=== PATIENT | female | born 1975 | race Caucasian/White ===

== ENCOUNTER → 2025-03-08 12:18 | Outpatient (REF) | payer BC, SELFPAY | LOC: WDC 12:18 | PROVIDERS: ATTENDING PHYSICIAN Obstetrics & Gynecology Gynecology; FAMILY PHYSICIAN Family Medicine | DX: Z12.31 Encounter for screening mammogram for malignant neoplasm of breast (principal) | CPT/HCPCS: 77063; 77067 ==

== ENCOUNTER 2025-04-15 04:19 | Emergency (ER) | payer BC, SELFPAY ==
[2025-04-15 04:25] VITALS: BP 109/76
--- NOTE | 2025-04-15 06:04 | ED.GENMED ---
History of Present Illness
General
Chief Complaint: Head Injury
Source: patient and spouse
Exam Limitations: none
Time Seen by Provider: 04/15/25 05:51
Nursing documentation reviewed up to this point in time: agreed with
History of Present Illness
History of Present Illness:
This is a 49-year-old woman with history of hypertension, GERD who admits to drinking alcohol last night. She took her lisinopril late prior to going to bed. She got up out of bed quickly as she was concerned that her father who has dementia was
up and about, wandering and was concerned that he was going to leave the house. While she quickly ambulated into the bathroom she admits to feeling briefly lightheaded and then she apparently passed out falling forward in the kitchen striking her
face on the kitchen floor.
She presents via private vehicle with complaints of abrasion/puncture wound to her nasal bridge. She does admit to brief epistaxis which stopped abruptly. She complains of headache, neck pain. No weakness nor numbness. She takes no
anticoagulants. She denies nausea or vomiting.
Cervical collar placed in triage.
Last Tdap 2018.
Patient sent from triage to CAT scan for CT the head, cervical spine, facial bones.
Past History
Past History
ED Past Medical History: Asthma, GERD, HTN, Psychiatric (Anxiety) and Other
ED Past Surgical History: Orthopedic (Right hand with removal of the pins) and Other (Cyst under breast removed)
Social History
Tobacco: Former smoker
Alcohol: Daily (Rum or Vodka 2-4, Now for the past 3-4 weeks only 1 daily. )
Drug: None
Personal:
Living: with family
Employment: Employed
Family History
Family History: Other (Noncontributory)
Phy Exam
Physical Exam
Physical Exam:
TRAUMA EXAM:
VITAL SIGNS: Vital signs reviewed, cooperative. Blood pressure 129/90 upon reevaluation during my initial evaluation.
DISTRESS: No active disease
EYES: Pupils reactive, no orbital trauma
NOSE: There is a 3 mm superficial laceration nasal bridge. No active bleeding. No soft tissue swelling nor ecchymosis. Nasal passages clear without blood. No septal hematoma.
FACE AND SCALP: No scalp trauma, external canals no blood. The mucosal surface of the upper lip has a superficial abrasion. No dental tenderness nor dental avulsions. No tenderness to the mandible nor maxilla. Full mandible range of motion
without difficulty.
NECK: Cervical collar in place.
BACK: Back nontender, pelvis stable to compression
RESPIRATORY: No distress, breath sounds normal, no tender chest wall
CARDIAC: No murmur, pulses equal and strong
ABDOMEN: Soft nontender bowel sounds normal
SKIN: Skin intact no bleeding, color normal
EXTREMITIES: Nontender
NEUROLOGICAL: Alert, oriented, no motor deficits
PSYCH: Mood affect normal
Course
Orders/Labs/Results
Orders:
Orders
04/15/25 04:42
CT Cervical Spine W/o Iv Contr Urgent
Reason For Exam: fall with neck pain
CT Facial Bones W/o Iv Contras Urgent
Comment:
Reason For Exam: fall with neck pain
CT Head W/o Iv Contrast Urgent
Comment:
Reason For Exam: fall with neck pain
04/15/25 04:44
Shoulder, Right 2 Views [CR Shoulder - Right Min 2 View] Urgent
Comment:
Reason For Exam: fall
04/15/25 06:03
Acetaminophen [Tylenol] 1,000 mg PO NOW STA
Tetanus/Diphth/Acelpertussis [Adacel] 0.5 ml IM .ONCE ONE
Vital Signs
Initial and Last Documented VS:
Initial Vital Signs
Temp Pulse Resp BP Pulse Ox
97.6 F 76 20 109/76 98
04/15/25 04:25 04/15/25 04:25 04/15/25 04:25 04/15/25 04:25 04/15/25 04:25
Last Documented Vital Signs
Temp Pulse Resp BP Pulse Ox
97.6 F 76 20 109/76 98
04/15/25 04:25 04/15/25 04:25 04/15/25 04:25 04/15/25 04:25 04/15/25 04:25
MDM/Problems Addressed
Differential Diagnosis Includes:
DIFFERENTIAL DIAGNOSIS
The Differential Diagnosis includes, in no particular order and is not limited to:
1. Orthostatic hypotension
2. Dehydration
3. Syncope
4. Facial contusion or abrasion
5. Vestibular disorder
6. Hypoglycemia
7. Use of alcohol contributing to symptoms
8. Transient ischemic attack (although less likely given the symptoms)
9. Medication side effects
10. Viral illness
MDM/Problems Addressed:
Syncope versus mechanical fall with facial injury.
And is drinking alcohol last night and according to our records there is history of frequent alcohol use which patient denies.
She remains bright and alert, pleasant, no evidence of alcohol intoxication. No focal neurodeficits.
CT of the head, cervical spine, facial bones all negative. No evidence of traumatic findings.
Superficial nasal laceration repaired with Steri-Strip.
Will update Tdap.
Cervical collar removed. No midline bony tenderness. Full cervical range of motion without difficulty.
Patient has been offered Tylenol versus ibuprofen for pain. She elects Tylenol.
Recommend supportive measures.
Avoid any further alcohol consumption at least over the next several days.
Prompt follow-up with PCP for recheck.
PLAN
1. The patient was advised to use Tylenol (acetaminophen) for the management of facial pain.
2. Hydration was emphasized, with recommendations to take fluids to address possible dehydration.
3. Advised to avoid sudden positional changes to prevent orthostatic hypotension.
4. Recommendations for a soft diet were given to avoid aggravating facial pain.
5. Provided with steri-strips for any minor abrasions, and instructions to keep the area clean and dry.
Chronic conditions affecting care: HTN
*Radiology
Radiology exam reviewed: radiology read reviewed
*Pulse Oximetry
SaO2: 98
Oxygen Mode of Delivery: Room air
Patient hypoxic: no
*Critical Care Note
Total Time (30-74mins, 75-104mins- exclusive of procedures): Not Applicable
ED Attending Note
-
Portions of this chart may have been created with voice recognition software.� Occasional wrong word or��sound alike� substitutions may have occurred due to the inherent limitations of voice recognition software.
Discharge Plan
Departure
Patient Disposition: Home (Routine Discharge)
Date of Disposition: 04/15/25
Time of Disposition: 06:06
Patient with high blood pressure during this ER visit?: No
Condition: Good
Discharge Problem:
Vasovagal syncope, Contusion of nose, Minor closed head injury, Cervical strain, acute, Contusion of upper lip
Instructions: Minor Head Injury (DC), Contusion (DC), Soft diet, Taking care of cuts, scrapes, and puncture wounds, Tdap vaccine
Prescriptions:
No Action
esomeprazole magnesium [Nexium] 40 MG capsule,delayed release(DR/EC)
40 mg PO DAILY
ranitidine HCl [Zantac Maximum Strength] 150 MG tablet
150 mg PO DAILY
fluticasone propionate [Flovent HFA] 1 PUFF HFA aerosol inhaler
1 puff inhalation DAILY
clonazepam 0.125 MG tablet,disintegrating
0.125 mg PO PRN PRN (Reason: anxiety)
ondansetron 4 mg film
4 mg PO Q8H PRN (Reason: nausea and vomiting) Qty: 30 0RF
pantoprazole 40 mg tablet,delayed release (DR/EC)
40 mg PO DAILY Qty: 14 0RF
Referrals:
Vimal Vazquez MD [Family Provider, Family Practice] - Call in 1-3 days for appt
Interventions
Interventions:
*General Assessment Last Done: 04/15/25 04:25
*Neglect/Abuse Screening Last Done: 04/15/25 04:25
*ED COVID-19 Vaccine History Last Done: 04/15/25 04:25
*ED Influenza Vaccine History Last Done: 04/15/25 04:25
Discharge Date and Time
Print Language: [id number]
[2025-04-15] MEDS: TYLENOL 1000 MG PO (06:16)
[2025-04-15] MEDS: ADACEL 0.5 ML IM (06:17)
== END 2025-04-15 06:31 | disposition home or self-care (01) ==
LOC: EMR 04:19
PROVIDERS: EMERGENCY PHYSICIAN Emergency Medicine; FAMILY PHYSICIAN Family Medicine
DX: R55 Syncope and collapse (principal); S00.33XA Contusion of nose, initial encounter; S09.90XA Unspecified injury of head, initial encounter; S16.1XXA Strain of muscle, fascia and tendon at neck level, initial encounter; S00.531A Contusion of lip, initial encounter; W01.198A Fall on same level from slipping, tripping and stumbling with subsequent striking against other object, initial encounter; Y92.000 Kitchen of unspecified non-institutional (private) residence as the place of occurrence of the external cause; I10 Essential (primary) hypertension; J45.909 Unspecified asthma, uncomplicated; K21.9 Gastro-esophageal reflux disease without esophagitis; F41.9 Anxiety disorder, unspecified; Z23 Encounter for immunization; Z87.891 Personal history of nicotine dependence
CPT/HCPCS: 99284; 90471; 70450; 70486; 72125; 90715